=== PATIENT | female | born 1965 | race Hispanic/Latino ===

== ENCOUNTER 2018-02-18 11:02 | Inpatient (IN) | payer BC ==
[~2018-02-18] VITALS: Ht 160 cm; Wt 87.5 kg
[2018-02-18] MEDS ORDERED: ASPIRIN 81 MG CHEW TAB PO STA (11:10)
[2018-02-18] MEDS ORDERED: DONNATAL/LIDOCAINE/MAALOX 30 ML SUSP PO ONE ×2 (11:15→12:00)
[2018-02-18 11:25] LABS: BASOPHILS % 0.5 % (0.0-1.0); EOSINOPHILS % 0.3 % (0.0-6.0); HEMATOCRIT 42.3 % (34.2-44.1); HEMOGLOBIN 14.4 g/dL (12.0-16.0); LYMPHOCYTES # (AUTO) 0.9 (1.0-3.2); LYMPHOCYTES % 13.7 % (18.0-39.1); MONOCYTES # (AUTO) 0.4 (0.2-0.8); MONOCYTES % 5.8 % (4.4-11.3); NEUTROPHILS # (AUTO) 5.1 (2.1-6.9); NEUTROPHILS % 79.2 % (38.7-80.0); PLATELET COUNT 223 x10e3/uL (140-360); RED BLOOD COUNT 4.65 x10e6/uL (3.6-5.1); RED CELL DISTRIBUTION WIDTH 13.7 % (11.7-14.4)
[2018-02-18 11:35] LABS: INR 1.01; PARTIAL THROMBOPLASTIN TIME 36.5 seconds (23.8-35.5); PROTHROMBIN TIME 12.5 seconds (11.9-14.5)
[2018-02-18 11:43] LABS: ALANINE AMINOTRANSFERASE 1055 IU/L (0-55); ALBUMIN 4.2 g/dL (3.5-5.0); ALBUMIN/GLOBULIN RATIO 1.1 (0.8-2.0); ALKALINE PHOSPHATASE 134 IU/L (40-150); AMYLASE 62 U/L (25-125); BLOOD UREA NITROGEN 7 mg/dL (7-26); BUN/CREATININE RATIO 9 (6-25); CALCIUM 9.7 mg/dL (8.4-10.2); CARBON DIOXIDE 22 mmol/L (22-29); CHLORIDE 107 mmol/L (98-107); CREATINE KINASE 91 IU/L (29-168); EST GLOMERULAR FILTRATION RATE > 60 ML/MIN (60-); GLUCOSE 144 mg/dL (74-118); LIPASE 13 U/L (8-78); SODIUM 138 mmol/L (136-145)
--- NOTE | 2018-02-18 11:49 | Diagnostic Imaging Report ---
Portable chest x-ray INDICATION: Stomach pain, heartburn COMPARISON: None FINDINGS: Frontal view of the chest obtained at 1126 hours. The cardiac silhouette is normal. The heart is mildly ectatic. The pulmonary vascular markings are normal. The lungs demonstrate low lung volumes. No mass or infiltrate. No interstitial thickening. The costophrenic angles are sharp. There is no pneumothorax. The osseous structures are intact and normal in morphology. IMPRESSION: Low lung volumes. No acute cardiopulmonary process. Signed by: Dr. Jose Alejandro Macario MD on 02/18/2018 11:45 AM
[2018-02-18] MEDS ORDERED: ASPIRIN 81 MG CHEW TAB PO ONE (12:00)
[2018-02-18] MEDS ORDERED: HYDROMORPHONE 1MG/1ML INJ IV PRN (15:00)
[2018-02-18] MEDS ORDERED: ONDANSETRON HCL INJ 2 MG/ML VIAL IV PRN (15:00)
[2018-02-18] MEDS ORDERED: KETOROLAC TROMETHAMINE 30 MG/ML VIAL IV ONE (15:00)
[2018-02-18] MEDS: D5.45%NS/KCL 20MEQ 1,000 ML IV SCH ×2 (15:13→17:16)
--- NOTE | 2018-02-18 15:16 | Diagnostic Imaging Report ---
HISTORY: Upper abdominal pain TECHNIQUE: Selected images from limited abdominal ultrasound provided for INTERPRETATION: COMPARISON: None. FINDINGS: Pancreas: Visualized portions are increased in echotexture without mass or ductal dilatation. Liver: Measures 16.8 cm in sagittal dimension. The echotexture is increased.. No mass in the visualized portions. Portal Vein: Measures 1.0 cm in diameter. There is hepatopetal flow. Biliary Tree: No intrahepatic dilatation. Gallbladder: Present and contains multiple gallstones. No gallbladder wall thickening or pericholecystic fluid. Sonographic Talley sign is negative. CBD: 0.8 cm. No intraluminal filling defect in the visualized portions. Right Kidney: 9.9 cm in greatest length. The echotexture is normal. There is a cyst in the interpolar region measuring 2.0 x 1.9 x 1.7 cm. There is no collecting system dilatation or evidence of obstruction. No renal calculi evident. No adjacent free fluid or fluid collections. Visualized IVC and aorta are normal. There is no free fluid. IMPRESSION: 1. Cholelithiasis without sonographic evidence of acute cholecystitis. Prominent common bile duct. Choledocholithiasis cannot be excluded. 2. Mild hepatomegaly and moderate steatosis. Pancreas lipomatosis. Signed by: Dr. Jose Alejandro Macario MD on 02/18/2018 3:12 PM
--- NOTE | 2018-02-18 16:28 | History and Physical ---
CHIEF COMPLAINT: Abdominal and lower chest discomfort. HISTORY OF PRESENT ILLNESS: Ms. 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 Reports no past medical history and presents with complaints of approximately 1 week of intermittent discomfort in the abdomen, epigastric area and lower chest worse following meals over the last 2-3 days and got significantly worse. Pattern of severity resulted in the patient proceeding to the emergency department for further evaluation. In the ER, she was found to have an AST of 447 and ALT of 1055, alkaline phosphatase of 134, bilirubin total of 7.4, and preliminary report of dilated common bile duct on ultrasound. Antibiotics have been initiated, as well as IV fluids. The patient is being kept n.p.o. GI and surgery were being consulted. Pain management initiated with some symptom improvement. She denies any fevers. She denies any exertional discomfort. She denies any shortness of breath or lightheadedness. She has no other complaints at this point in time. REVIEW OF SYSTEMS: A 12-system review negative except for as noted above. ALLERGIES: SULFA. PAST MEDICAL HISTORY: None reported. SOCIAL HISTORY: Denies smoking, alcohol or drugs. FAMILY HISTORY: Noncontributory. PHYSICAL EXAMINATION VITALS: Temperature 98.3, heart rate 65, respiratory rate 20, blood pressure 122/88, and O2 sat 98% on room air. GENERAL: In no acute distress. Alert. NECK: No JVD. CHEST: Clear to auscultation. CARDIOVASCULAR: Regular rate and rhythm. Normal S1 and S2. No S3. No S4. No murmurs. No rubs. ABDOMEN: Tenderness to palpation in the epigastric and right upper quadrant area. No rebound. No guarding. Bowel sounds positive. EXTREMITIES: No cyanosis, clubbing or edema. EKG with sinus rhythm and incomplete right bundle branch block. STUDIES: White blood cells 6.3, hemoglobin 14.4, and platelets 223,000. PT 12.5, PTT 36.5 and INR 1. Calcium is 9.7. CK 91, CK-MB 1.1 and troponin I 0.011. Sodium 138, potassium 4, chloride 110, bicarbonate 22, BUN 7, creatinine 0.8, glucose 144. Lipase 13, amylase 62, total protein 8, albumin 4.2, total protein 7.4, AST 447, ALT 1055, alkaline phosphatase 134. ASSESSMENT 1. Cholelithiasis, acute. 2. Abnormal transaminases. RECOMMENDATIONS 1. Antibiotics. 2. Await final result of right upper quadrant ultrasound. 3. GI consult. 4. Surgery consult. 5. IV fluids. 6. Keep n.p.o. 7. SCDs and TEDs for prophylaxis. 8. Keep on telemetry. Job#: [id number] RI
[2018-02-18 16:30] VITALS: BP 151/77
[2018-02-18 17:00] VITALS: BP 151/77
[2018-02-18] MEDS: PIPER-TAZ 3.375 GM 50 ML IV SCH ×2 (17:15→23:25)
--- NOTE | 2018-02-18 17:41 | Diagnostic Imaging Report ---
MRCP CPT code: 35081 History: Right upper quadrant pain, distended common bile duct on ultrasound Comparison: Right upper quadrant ultrasound 02/18/2018. Technique: Multiplanar, multisequence images of the abdomen were obtained per MRCP protocol. 3D volume rendered reformation images of the biliary tree were performed. No intravenous gadolinium was administered. Findings: Images are motion degraded. The thin, heavily T2-weighted coronal images of the biliary tree are incompletely due to patient motion. Biliary tree: No intrahepatic biliary ductal dilatation. The common hepatic duct is poorly visualized. The common bile duct measures 5 mm in diameter and tapers as it approaches the ampulla. There are no intraluminal filling defects. The cystic duct is poorly visualized. There is no beading or narrowing of the biliary tree. The pancreas duct is not dilated. Gallbladder: Present and is filled with subcentimeter intraluminal gallstones. No gallbladder wall thickening or pericholecystic fluid Liver: Decreased signal suggestive of steatosis. No mass Spleen: Normal size and signal. No mass. Pancreas: Normal T1 and T2 signal. No mass Kidneys: No hydronephrosis. The cyst suspected in the right kidney on ultrasound has no MRI correlate. There are no renal masses. Adrenal glands: No mass Bowel: The stomach is collapsed. Visualized portions of the small bowel and large bowel are normal in diameter with normal wall thickness. Vessels: Normal diameter. No free fluid or fluid collection. Bones: Normal marrow signal. No focal osseous lesions. IMPRESSION: 1. Cholelithiasis. No evidence of choledocholithiasis or biliary ductal dilatation. If cholecystectomy is planned, recommend intraoperative cholangiogram to exclude tiny intraluminal stones in the common bile duct. 2. Hepatic steatosis. 3. No evidence of renal mass. The kidneys are normal. Signed by: Dr. Jose Alejandro Macario MD on 02/18/2018 5:38 PM
[2018-02-18] MEDS ORDERED: PIPER-TAZ 3.375 GM / NS 50ML IV SCH (18:00)
[2018-02-18 20:02] VITALS: BP 121/73
[2018-02-19] VITALS: BP 117/69
[2018-02-19 04:00] VITALS: BP 121/75
[2018-02-19 05:08] LABS: BASOPHILS % 0.4 % (0.0-1.0); EOSINOPHILS # (AUTO) 0.1 (0.0-0.4); EOSINOPHILS % 2.1 % (0.0-6.0); HEMOGLOBIN 12.2 g/dL (12.0-16.0); LYMPHOCYTES # (AUTO) 1.7 (1.0-3.2); LYMPHOCYTES % 36.8 % (18.0-39.1); MEAN CORPUSCULAR HEMOGLOBIN 31.2 pg (28-32); MEAN CORPUSCULAR HGB CONC 33.9 g/dL (31-35); MEAN CORPUSCULAR VOLUME 92.1 fL (81-99); MONOCYTES # (AUTO) 0.4 (0.2-0.8); MONOCYTES % 8.1 % (4.4-11.3); NEUTROPHILS # (AUTO) 2.5 (2.1-6.9); NEUTROPHILS % 52.4 % (38.7-80.0); PLATELET COUNT 191 x10e3/uL (140-360); RED BLOOD COUNT 3.91 x10e6/uL (3.6-5.1); RED CELL DISTRIBUTION WIDTH 13.9 % (11.7-14.4)
[2018-02-19] MEDS: PIPER-TAZ 3.375 GM 50 ML IV SCH ×2 (05:21→18:12)
[2018-02-19 05:34] LABS: CHOL/HDL RATIO 3.9 (3.0-3.6)
[2018-02-19 05:39] LABS: ALANINE AMINOTRANSFERASE 743 IU/L (0-55); ALBUMIN 3.5 g/dL (3.5-5.0); ALBUMIN/GLOBULIN RATIO 1.2 (0.8-2.0); ALKALINE PHOSPHATASE 106 IU/L (40-150); AMYLASE 93 U/L (25-125); ANION GAP 11.3 mmol/L (8-16); BLOOD UREA NITROGEN 9 mg/dL (7-26); BUN/CREATININE RATIO 11 (6-25); CALCIUM 9.1 mg/dL (8.4-10.2); CARBON DIOXIDE 24 mmol/L (22-29); CHLORIDE 106 mmol/L (98-107); CREATININE, SERUM 0.85 mg/dL (0.57-1.11); EST GLOMERULAR FILTRATION RATE > 60 ML/MIN (60-); GLUCOSE 141 mg/dL (74-118); LIPASE 47 U/L (8-78); POTASSIUM 3.3 mmol/L (3.5-5.1); SODIUM 138 mmol/L (136-145)
[2018-02-19 05:50] LABS: ALBUMIN 3.5 g/dL (3.5-5.0); BILIRUBIN,DIRECT 3.1 mg/dL (0.0-0.5)
[2018-02-19 05:58] LABS: THYROID STIMULATING HORMONE 2.134 uIU/mL (0.350-4.940)
[2018-02-19 08:00] VITALS: BP 106/73
[2018-02-19] MEDS ORDERED: POTASSIUM CHLORIDE 20MEQ/100ML 100 ML IV ONE (10:30)
[2018-02-19] MEDS: D5.45%NS/KCL 20MEQ 1,000 ML IV SCH (15:00)
[2018-02-19 16:00] VITALS: BP 147/70
[2018-02-19 18:00] LABS: ALBUMIN 3.7 g/dL (3.5-5.0)
[2018-02-19 20:05] VITALS: BP_SYST 131; BP_SYST 150; BP_DIAS 67; BP_DIAS 84
[2018-02-20] VITALS (7 sets, daily range): BP systolic 115–138; BP diastolic 57–85
[2018-02-20] MEDS: PIPER-TAZ 3.375 GM 50 ML IV SCH ×5 (00:15→23:06)
[2018-02-20 05:41] LABS: AMYLASE 57 U/L (25-125); ANION GAP 11.8 mmol/L (8-16); BLOOD UREA NITROGEN 8 mg/dL (7-26); BUN/CREATININE RATIO 9 (6-25); CALCIUM 9.1 mg/dL (8.4-10.2); CARBON DIOXIDE 25 mmol/L (22-29); CHLORIDE 106 mmol/L (98-107); CREATININE, SERUM 0.85 mg/dL (0.57-1.11); EST GLOMERULAR FILTRATION RATE > 60 ML/MIN (60-); GLUCOSE 130 mg/dL (74-118); LIPASE 11 U/L (8-78); POTASSIUM 3.8 mmol/L (3.5-5.1); SODIUM 139 mmol/L (136-145)
[2018-02-20] MEDS: D5.45%NS/KCL 20MEQ 1,000 ML IV SCH ×2 (07:06→20:11)
[2018-02-20 09:01] LABS: ALBUMIN 3.5 g/dL (3.5-5.0); BILIRUBIN,DIRECT 1.4 mg/dL (0.0-0.5)
[2018-02-20] MEDS ORDERED: SODIUM CHLORIDE 0.9% 250ML 250 ML ONE (12:53)
[2018-02-20 14:25] LABS: BILIRUBIN,URINE NEGATIVE (NEGATIVE); CLARITY,URINE SL CLOUDY (CLEAR); COLOR,URINE YELLOW (YELLOW); KETONES,URINE NEGATIVE (NEGATIVE); LEUKOCYTE ESTERASE ,URINE NEGATIVE (NEGATIVE); NITRITE,URINE NEGATIVE (NEGATIVE); PROTEIN,URINE DIPSTICK NEGATIVE (NEGATIVE); URINE UROBILINOGEN 1 mg/dL (0.2 - 1)
[2018-02-20 14:27] LABS: AMPHETAMINES SCREEN,URINE NEGATIVE (NEGATIVE); BENZODIAZEPINES SCREEN,URINE NEGATIVE (NEGATIVE); PHENCYCLIDINE SCREEN,URINE NEGATIVE (NEGATIVE)
[2018-02-20 14:28] LABS: PREGNANCY TEST, URINE NEGATIVE (NEGATIVE)
[2018-02-20 14:36] LABS: EPITHELIAL CELLS,URINE MODERATE /LPF
--- NOTE | 2018-02-20 22:27 | Progress Note ---
DATE: February 20, 2018 INTERNAL MEDICINE PROGRESS NOTE This is coverage for Dr. Dorian Lee. SUBJECTIVE: Mrs. Cervantes was seen and examined at bedside. She remains on IV fluid at 75 mL per hour. At 96% oxygen saturation, room air FiO2. She voided twice. MRCP showed no common bile duct dilatation. She remains n.p.o. and is better and she is not requiring anymore pain medicines today. LFTs continue to improve. REVIEW OF SYSTEMS: No bleeding, no rash. OBJECTIVE VITAL SIGNS: Afebrile, vital signs noted per electronic record. GENERAL: No acute distress. Alert and calm. HEENT: Normocephalic, atraumatic. NECK: Supple. Throat midline. LUNGS: Bilateral air entry, clear. CARDIOVASCULAR: S1, S2. No murmurs, rubs or gallops. ABDOMEN: Soft, nontender. EXTREMITIES: No clubbing, no cyanosis. There is no edema. INTEGUMENT: No rash, no purpura. LABS: 5 white count, 191,000 platelets. AST 214, ALT is 672, alkaline phosphatase is 104, T-bili is 3.1. IMPRESSIONS AND PLAN 1. Acute cholelithiasis. 2. Elevated liver function tests, most likely totally secondary to the cholelithiasis and cholecystitis. 3. Atypical chest pain. 4. Pain. At this time, will continue current treatment. Repeat LFTs in the morning. Tentative for surgery when T-bilirubin is reasonably decreasing. Repeat LFTs tomorrow and consider surgery. Continue pain medicines if needed, but good news patient is not requiring. Continue some IV fluid. Continue antibiotics. Job#: [id number]
[2018-02-21] VITALS (8 sets, daily range): BP systolic 108–134; BP diastolic 58–75
[2018-02-21 04:57] LABS: BASOPHILS % 0.8 % (0.0-1.0); EOSINOPHILS # (AUTO) 0.1 (0.0-0.4); EOSINOPHILS % 2.3 % (0.0-6.0); HEMATOCRIT 36.5 % (34.2-44.1); HEMOGLOBIN 12.3 g/dL (12.0-16.0); LYMPHOCYTES # (AUTO) 2.1 (1.0-3.2); LYMPHOCYTES % 39.4 % (18.0-39.1); MEAN CORPUSCULAR HEMOGLOBIN 30.8 pg (28-32); MEAN CORPUSCULAR HGB CONC 33.7 g/dL (31-35); MEAN CORPUSCULAR VOLUME 91.5 fL (81-99); MONOCYTES # (AUTO) 0.5 (0.2-0.8); NEUTROPHILS # (AUTO) 2.5 (2.1-6.9); NEUTROPHILS % 48.1 % (38.7-80.0); PLATELET COUNT 196 x10e3/uL (140-360); RED BLOOD COUNT 3.99 x10e6/uL (3.6-5.1); RED CELL DISTRIBUTION WIDTH 13.5 % (11.7-14.4)
[2018-02-21 05:41] LABS: ALANINE AMINOTRANSFERASE 393 IU/L (0-55); ALBUMIN 3.4 g/dL (3.5-5.0); ALBUMIN/GLOBULIN RATIO 1.1 (0.8-2.0); ALKALINE PHOSPHATASE 98 IU/L (40-150); BLOOD UREA NITROGEN 7 mg/dL (7-26); BUN/CREATININE RATIO 8 (6-25); CALCIUM 9.2 mg/dL (8.4-10.2); CARBON DIOXIDE 26 mmol/L (22-29); CHLORIDE 108 mmol/L (98-107); CREATININE, SERUM 0.87 mg/dL (0.57-1.11); EST GLOMERULAR FILTRATION RATE > 60 ML/MIN (60-); GLUCOSE 123 mg/dL (74-118); MAGNESIUM 1.9 MG/DL (1.3-2.1); SODIUM 142 mmol/L (136-145)
[2018-02-21] MEDS: PIPER-TAZ 3.375 GM 50 ML IV SCH ×3 (05:55→17:58)
[2018-02-21] MEDS: D5.45%NS/KCL 20MEQ 1,000 ML IV SCH (09:00)
[2018-02-21] MEDS ORDERED: BUPIVACAINE 0.25%/EPI 30ML SDV INJ ONE (09:01)
[2018-02-21] MEDS ORDERED: IOPAMIDOL 300MG/ML 50ML INFUS..BTL IV ONE (09:01)
[2018-02-21] MEDS ORDERED: HYDROMORPHONE 2MG/ML 2 MG/ML ML ONE (10:19)
[2018-02-21] MEDS ORDERED: PIPER-TAZ 3.375 GM 50 ML ONE (11:27)
--- NOTE | 2018-02-21 12:02 | Progress Note ---
DATE: February 21, 2018 INTERNAL MEDICINE PROGRESS NOTE This is coverage for Dr. Dorian Lee. SUBJECTIVE: Ms. Cervantes was seen and examined at bedside. Once again, no pain medications were given yesterday. Pain is very mild. Patient with no nausea and no emesis. She is tolerating the IV fluids at 75 mL per hour. She remains n.p.o. for the most part at this time. REVIEW OF SYSTEMS: No headaches, no bleeding. OBJECTIVE VITAL SIGNS: Afebrile, vital signs noted per electronic record. GENERAL: In no acute distress, alert and calm. HEENT: Normocephalic, atraumatic. NECK: Supple. Throat midline. LUNGS: Bilateral air entry, clear. CARDIOVASCULAR: S1, S2. No murmurs, rubs, or gallops. ABDOMEN: Soft, nontender. EXTREMITIES: No clubbing, no cyanosis, there is no edema. INTEGUMENT: No rash, no purpura. IMPRESSION AND PLAN 1. Acute cholecystitis. 2. Elevated liver function tests. 3. Pain. 4. Preoperative evaluation prior to surgery. Continue current treatment at this time. Patient is a reasonable candidate for surgery. Her LFTs continue to improve. We will check it one more time anticipating surgery tomorrow. Followup on IV fluids. Patient remains in improving condition. IV fluids will continue and there is no further hypoglycemia on the fluids. We will follow up closely. Job#: [id number]
[2018-02-21] MEDS ORDERED: BUPIVACAINE 0.25% 30ML SDV INJ ONE (12:08)
[2018-02-21] MEDS ORDERED: BUPIVACAINE LIPOSOME/PF 266 MG/20 ML IJ ONE (12:08)
[2018-02-21] MEDS ORDERED: HYDROMORPHONE 0.2MG/ML-SOD CHL 30ML PCA SYRINGE IV PRN (12:45)
[2018-02-21] MEDS ORDERED: ACETAMINOPHEN 1000 MG/100 ML IV PRN (12:45)
[2018-02-21] MEDS ORDERED: KETOROLAC TROMETHAMINE 30 MG/ML VIAL IV PRN (12:45)
[2018-02-21] MEDS ORDERED: NALOXONE HCL INJ 0.4 MG/ML AMP IV PRN (12:45)
[2018-02-21] MEDS ORDERED: HYDROMORPHONE 1MG/1ML INJ ONE (13:27)
[2018-02-21] MEDS: PANTOPRAZOLE 40 MG 10ML VIAL IV SCH (13:30)
[2018-02-21] MEDS ORDERED: GLYCOPYRROLATE INJ 1MG/ 5 ML SYR IV ONE (14:04)
[2018-02-21] MEDS ORDERED: PROPOFOL IV EMULSION 10 MG/ML 20 ML VIAL IV ONE (14:04)
[2018-02-21] MEDS ORDERED: DEXAMETHASONE SOD PHOS INJ 4 MG/ML VIAL IV ONE (14:04)
[2018-02-21] MEDS ORDERED: KETOROLAC TROMETHAMINE 30 MG/ML VIAL IV ONE (14:04)
[2018-02-21] MEDS ORDERED: SEVOFLURANE INHAL SOLN 250 ML PEN BTL INH ONE (14:04)
[2018-02-21] MEDS ORDERED: LIDOCAINE HCL 2% LOCAL INJ 5 ML SDV VIAL INJ ONE (14:04)
[2018-02-21] MEDS ORDERED: ROCURONIUM BROMIDE 10 MG/ML 5ML VIAL IV ONE (14:04)
[2018-02-21] MEDS ORDERED: ONDANSETRON HCL INJ 2 MG/ML VIAL IV ONE (14:04)
[2018-02-21] MEDS ORDERED: ACETAMINOPHEN 1000 MG/100 ML IV ONE (14:04)
[2018-02-21] MEDS ORDERED: NEOSTIGMINE 5 MG/5ML SYR IV ONE (14:04)
[2018-02-21] MEDS ORDERED: HYDROMORPHONE 0.2MG/ML-SOD CHL 30ML PCA SYRINGE IV ONE (14:32)
[2018-02-21] MEDS: DEXTROSE 5%/LACTATED RINGERS 1,000 ML IV SCH (14:56)
[2018-02-21] MEDS ORDERED: FENTANYL CITRATE/PF 100MCG/2 ML INJ ONE (15:52)
[2018-02-21] MEDS ORDERED: MIDAZOLAM HCL 2 MG/2 ML VIAL ONE (15:52)
[2018-02-22] VITALS (7 sets, daily range): BP systolic 114–137; BP diastolic 59–69
[2018-02-22] MEDS: DEXTROSE 5%/LACTATED RINGERS 1,000 ML IV SCH ×3 (01:23→18:45)
[2018-02-22] MEDS: PIPER-TAZ 3.375 GM 50 ML IV SCH ×5 (06:00→22:05)
[2018-02-22] MEDS: PANTOPRAZOLE 40 MG 10ML VIAL IV SCH (09:10)
[2018-02-22] MEDS ORDERED: HYDROMORPHONE 0.2MG/ML-SOD CHL 30ML PCA SYRINGE IV PRN (19:30)
[2018-02-23] VITALS (8 sets, daily range): BP systolic 119–155; BP diastolic 58–75
[2018-02-23] MEDS: PIPER-TAZ 3.375 GM 50 ML IV SCH ×5 (00:05→23:54)
--- NOTE | 2018-02-23 01:32 | Progress Note ---
DATE: February 22, 2018 INTERNAL MEDICINE PROGRESS NOTE This is coverage for Dr. Lee. SUBJECTIVE: Ms. Cervantes was seen and examined at bedside. D5 LR 100 mL per hour ongoing. Patient had an exploratory laparotomy yesterday. She had cholecystectomy and she has common bile duct exploration with insertion of G-tube. Estimated blood loss was 75 mL. Patient is on hydromorphone CERTIFIED ORTHOTIC FITTER for pain. She is spontaneously awake. REVIEW OF SYSTEMS: No chest pain, no rash. OBJECTIVE: VITAL SIGNS: Afebrile, vital signs noted per electronic record. GENERAL: In no acute distress, alert and calm. HEENT: Normocephalic, atraumatic. NECK: Supple. Throat midline. LUNGS: Bilateral air entry, clear. CARDIOVASCULAR: S1, S2. No murmurs, rubs, or gallops. ABDOMEN: Postoperative with bandage especially on the right upper quadrant. EXTREMITIES: No clubbing, no cyanosis, there is no edema. INTEGUMENT: No rash, no purpura. LABS: 7 BUN, 0.9 creatinine. 5 white count, 37 hematocrit. IMPRESSION AND PLAN: 1. Acute cholecystitis. 2. gallstone. 3. elevated liver function tests, non-cholestatic pattern. 4. Pain, postoperative. Continue antibiotics for now, Zosyn. Patient will continue with drain in place and will follow up output. Continue local wound care. Patient is currently n.p.o. Diet will be escalated by surgeon as she gets better. Job#: [id number] DR LEAL
[2018-02-23] MEDS: DEXTROSE 5%/LACTATED RINGERS 1,000 ML IV SCH ×3 (04:31→23:13)
[2018-02-23 05:45] LABS: BASOPHILS % 0.3 % (0.0-1.0); EOSINOPHILS # (AUTO) 0.1 (0.0-0.4); EOSINOPHILS % 0.8 % (0.0-6.0); HEMATOCRIT 34.7 % (34.2-44.1); HEMOGLOBIN 11.5 g/dL (12.0-16.0); LYMPHOCYTES # (AUTO) 1.5 (1.0-3.2); LYMPHOCYTES % 21.2 % (18.0-39.1); MEAN CORPUSCULAR HGB CONC 33.1 g/dL (31-35); MEAN CORPUSCULAR VOLUME 93.5 fL (81-99); MONOCYTES # (AUTO) 0.6 (0.2-0.8); MONOCYTES % 7.9 % (4.4-11.3); NEUTROPHILS % 69.4 % (38.7-80.0); PLATELET COUNT 198 x10e3/uL (140-360); RED BLOOD COUNT 3.71 x10e6/uL (3.6-5.1); RED CELL DISTRIBUTION WIDTH 13.7 % (11.7-14.4)
[2018-02-23 06:11] LABS: ALANINE AMINOTRANSFERASE 226 IU/L (0-55); ALBUMIN 3.3 g/dL (3.5-5.0); ALKALINE PHOSPHATASE 79 IU/L (40-150); ANION GAP 12.7 mmol/L (8-16); BLOOD UREA NITROGEN 5 mg/dL (7-26); BUN/CREATININE RATIO 6 (6-25); CALCIUM 9.2 mg/dL (8.4-10.2); CARBON DIOXIDE 29 mmol/L (22-29); CHLORIDE 103 mmol/L (98-107); CREATININE, SERUM 0.85 mg/dL (0.57-1.11); EST GLOMERULAR FILTRATION RATE > 60 ML/MIN (60-); GLUCOSE 130 mg/dL (74-118); MAGNESIUM 1.8 MG/DL (1.3-2.1); POTASSIUM 3.7 mmol/L (3.5-5.1); SODIUM 141 mmol/L (136-145)
[2018-02-23] MEDS: PANTOPRAZOLE 40 MG 10ML VIAL IV SCH (09:40)
--- NOTE | 2018-02-23 13:55 | Progress Note ---
DATE: February 23, 2018 INTERNAL MEDICINE PROGRESS NOTE This is coverage for Dr. Lee. SUBJECTIVE: Ms. Cervantes was seen and examined at bedside. She continues with slow progress. Pain is a little bit less. She started on clear liquid diet which she is tolerating so far. No bowel movement yet but she did have some flatus. She is not really using her DIRECTOR RECREATION pump at all. REVIEW OF SYSTEMS: No headaches, no rash. OBJECTIVE VITAL SIGNS: Afebrile, vital signs noted per the chart record. GENERAL: No acute distress, alert, sitting up. HEENT: Normocephalic, atraumatic. NECK: Supple, throat midline. LUNGS: Bilateral air entry, clear. CARDIOVASCULAR: S1, S2. No murmurs, rubs or gallops. ABDOMEN: Soft, postoperative, mostly nontender. EXTREMITIES: No clubbing, no cyanosis, there is no edema. IMPRESSION AND PLAN 1. Acute cholecystitis. 2. Cholelithiasis. 3. Postoperative pain, mild. 4. Chronic hepatitis. Continue to follow postoperative care. Escalate diet as per surgeon. Local wound care and drains in place and will follow up output. At this time continue antibiotics. Tylenol for pain as patient is not needing the DIRECTOR RECREATION pump any more. Continue to mobilize her and ambulate her. Job#: [id number] LUCILA
[2018-02-23] MEDS ORDERED: HYDROCODONE/APAP 7.5MG-325MG 1 EA TAB PO PRN (14:45)
[2018-02-23] MEDS ORDERED: HYDROMORPHONE 1MG/1ML INJ IV PRN (14:45)
[2018-02-23] MEDS: ACETAMINOPHEN 325 MG TAB PO PRN (18:29)
[2018-02-24] VITALS: BP 122/62
[2018-02-24 04:00] VITALS: BP 121/57
[2018-02-24] MEDS: PIPER-TAZ 3.375 GM 50 ML IV SCH ×2 (05:52→12:00)
[2018-02-24 08:00] VITALS: BP 133/71
[2018-02-24] MEDS: PANTOPRAZOLE 40 MG 10ML VIAL IV SCH (09:41)
[2018-02-24] MEDS: ACETAMINOPHEN 325 MG TAB PO PRN (09:41)
[2018-02-24 09:43] VITALS: BP 133/71
[2018-02-24 12:03] VITALS: BP 116/70
[2018-02-24] MEDS ORDERED: NORCO 7.5-3251 EACH PO (14:44)
[2018-02-24] MEDS ORDERED: LEVAQUIN500 MG PO (14:45)
[2018-02-24 16:14] VITALS: BP 126/75
--- NOTE | 2018-02-25 02:53 | Discharge Summary ---
NO DICTATION (00:05) Job#: [id number] CQ
--- NOTE | 2018-02-25 03:10 | Discharge Summary ---
HOSPITAL PHYSICIAN: Dr. Dorian Lee. PRIMARY DIAGNOSES 1. Acute cholelithiasis. 2. Acute cholecystitis. SECONDARY DIAGNOSES 1. Elevated liver function tests, other hepatitis not otherwise specified. 2. Postoperative pain. HOSPITAL COURSE: Ms. Cervantes was admitted. White count was 6. Chemistry demonstrated ALT 1065, AST 445, total bilirubin 4.4, globulin 3.8. These numbers improved. As they improved, the patient was prepared for surgery. TSH was normal. Lipase was normal. Hepatitis C antibody negative. Hepatitis Bs antigen negative. Hepatitis A IgM negative. Chest x-ray was clear. MRCP showed cholelithiasis, but no evidence of choledocholithiasis nor biliary duct dilatation. The patient went for surgery. Intraoperative cholangiogram was performed to exclude tiny intraluminal stones. The patient had exploratory laparotomy with cholecystectomy and the common bile duct exploration with insertion of T2. The patient had unremarkable postoperative state with CHERELLE drain and NG tube in place. As she improved and tolerated feeds, we allowed her to get discharged for outpatient followup. MEDICATION ON DISCHARGE: Please see discharge medication record for detail. DIET AT DISCHARGE: [facility]. ACTIVITY: As tolerated. Greater than 30 minutes spent on discharge planning and coordination. SERG MCDERMOTT MD Job#: [id number]
== END 2018-02-24 15:52 | disposition home or self-care (01) | DRG 419 ==
LOC: ER 11:02 → ERHOLD 14:55 → MED/SURG2 16:28 → MED/SURG 02-21 20:49
PROVIDERS: ADMIT Internal Medicine; ATTEND Internal Medicine
PROC: 0F794ZZ Dilation of Common Bile Duct, Percutaneous Endoscopic Approach (ICD-10-PCS; 2018-02-21)
PROC: 3C1ZX8Z Irrigation of Indwelling Device using Irrigating Substance, External Approach (ICD-10-PCS; 2018-02-21)
PROC: BF001ZZ Plain Radiography of Bile Ducts using Low Osmolar Contrast (ICD-10-PCS; 2018-02-21)
PROC: 0FT44ZZ Resection of Gallbladder, Percutaneous Endoscopic Approach (ICD-10-PCS; principal; 2018-02-21 09:35)
DX: K80.00 Calculus of gallbladder with acute cholecystitis without obstruction (principal); R74.0 Nonspecific elevation of levels of transaminase and lactic acid dehydrogenase [LDH]; Z88.2 Allergy status to sulfonamides; Z83.3 Family history of diabetes mellitus; Z82.49 Family history of ischemic heart disease and other diseases of the circulatory system; K21.9 Gastro-esophageal reflux disease without esophagitis; E87.6 Hypokalemia; R94.5 Abnormal results of liver function studies; R07.89 Other chest pain; K73.9 Chronic hepatitis, unspecified
CPT/HCPCS: 36415; 71045; 74181; 74300; 76705; 80048; 80053; 80061; 80076; 80307; 81001; 81025; 82150; 82550; 82553; 83036; 83690; 83735; 84443; 84484; 85025; 85610; 85730; 88304; 93005; 96361; 96367; 99284; C1766; J1100; J1170; J1885; J2001; J2250; J2405; J2543; J3480; J7050; J7120